=== PATIENT | female | born 1995 | race Caucasian/White ===

== ENCOUNTER 2017-01-22 19:38 | Outpatient (CLI) | payer SELFPAY ==
[~2017-01-22] VITALS: Ht 170.2 cm; Wt 70.3 kg
[~2017-01-22 19:38] MED LIST: PRENATAL TABLE1 EAC3 PO; ZOFRAN ODT8 MG PO
[2017-01-22 20:10] VITALS: BP 93/58
== END 2017-01-22 20:50 | disposition home or self-care (01) ==
LOC: LDRP-OP 19:38 → 2WEST 19:41
DX: O36.8130 Decreased fetal movements, third trimester, not applicable or unspecified (principal); Z3A.33 33 weeks gestation of pregnancy; Z87.891 Personal history of nicotine dependence
CPT/HCPCS: 59025; G0378

== ENCOUNTER 2017-03-09 14:08 | Inpatient (IN) | payer OTHER ==
[~2017-03-09] VITALS: Ht 170.2 cm; Wt 63.2 kg
[2017-03-09] VITALS (7 sets, daily range): BP systolic 110–117; BP diastolic 55–64
[2017-03-09] MEDS ORDERED: MACROBID100 MG PO (14:51)
[2017-03-09 16:24] LABS: ADD MIUA? YES; BILIRUBIN NEGATIVE; BLOOD MODERATE; COLOR YELLOW ((YELLOW)); GLUCOSE (STRIP) NEGATIVE; KETONES NEGATIVE; LEUKOCYTES NEGATIVE; NITRITE NEGATIVE; PROTEIN (STRIP) NEGATIVE; UROBILINOGEN 0.2 MG/DL (0.2-1.0)
[2017-03-09 16:28] LABS: BACTERIA RARE /HPF; EPITHELIAL CELLS RARE /HPF; MUCUS 1+ /LPF; RED BLOOD CELLS 0-5 /HPF (0-5); UCUL ADDED? NO; WHITE BLOOD CELLS 0-5 /HPF (0-5)
[2017-03-09 16:48] LABS: AMPHETAMINES QUANT VALUE 0 NG/ML; BARBITUATES QUANT VALUE 0 NG/ML; BENZODIAZEPINES QUANT VALUE 0 NG/ML; BENZODIAZEPINES, URINE SCREEN Negative (200 ng/mL); MARIJUANA QUANT VALUE 0 NG/ML; OPIATES QUANTITATIVE VALUE 0 NG/ML; PHENCYCLIDINE QUANT VALUE 0 NG/ML
[2017-03-09 17:23] LABS: BASOPHIL COUNT 0.1 K/uL (0-0.1); EOSINOPHIL (%) 1.2 % (0-5); EOSINOPHIL COUNT 0.2 K/uL (0-0.3); HEMATOCRIT 29.7 % (36.0-46.0); IMMATURE GRANULOCYTE (%) 3.8 % (0.0-0.7); IMMATURE GRANULOCYTE COUNT 0.5 K/uL; INSTRUMENT ABS NEUTROPHIL CT 9.9 K/uL; LYMPHOCYTE COUNT 2.2 K/uL (1.0-2.8); MCH 25.2 PG (29.0-34.0); MCHC 31.6 G/DL (30.0-36.0); MCV 79.6 FL (83-99); MEAN PLAT.VOLUME 9.4 uM^3 (9.5-12.4); MONOCYTE (%) 6.8 % (3-12); MONOCYTE COUNT 0.9 K/uL (0-0.8); NEUTROPHIL (%) 71.7 % (45-76); NEUTROPHIL COUNT 9.9 K/uL (1.8-6.4); PLATELET COUNT 298 K/uL (156-360); RBC DIS.WIDTH-CV 15.8 % (11.8-14.6); RBC DIS.WIDTH-SD 44.9 % (39-53); RED BLOOD COUNT 3.73 M/uL (3.80-5.20); WHITE BLOOD COUNT 13.9 K/uL (4.1-10.2)
[2017-03-10] VITALS (29 sets, daily range): BP systolic 85–116; BP diastolic 46–70
[2017-03-11 07:02] LABS: EOSINOPHIL (%) 1.4 % (0-5); EOSINOPHIL COUNT 0.2 K/uL (0-0.3); HEMATOCRIT 26.8 % (36.0-46.0); IMMATURE GRANULOCYTE (%) 1.5 % (0.0-0.7); IMMATURE GRANULOCYTE COUNT 0.2 K/uL; INSTRUMENT ABS NEUTROPHIL CT 10.5 K/uL; LYMPHOCYTE COUNT 2.4 K/uL (1.0-2.8); MCH 25.5 PG (29.0-34.0); MCHC 32.1 G/DL (30.0-36.0); MCV 79.5 FL (83-99); MEAN PLAT.VOLUME 9.8 uM^3 (9.5-12.4); MONOCYTE (%) 7.9 % (3-12); MONOCYTE COUNT 1.1 K/uL (0-0.8); NEUTROPHIL (%) 72.6 % (45-76); NEUTROPHIL COUNT 10.5 K/uL (1.8-6.4); PLATELET COUNT 261 K/uL (156-360); RBC DIS.WIDTH-CV 15.9 % (11.8-14.6); RBC DIS.WIDTH-SD 45.4 % (39-53); RED BLOOD COUNT 3.37 M/uL (3.80-5.20); WHITE BLOOD COUNT 14.4 K/uL (4.1-10.2)
[2017-03-11 07:57] VITALS: BP 96/60
[2017-03-11 14:39] VITALS: BP 96/52
[2017-03-11 23:53] VITALS: BP 111/62
[2017-03-12 07:20] VITALS: BP 93/54
[2017-03-12] MEDS ORDERED: VITRON-C TABLE1 EACH PO (11:59)
[2017-03-12 14:44] VITALS: BP 94/52
== END 2017-03-12 16:50 | disposition home or self-care (01) | DRG 775 ==
LOC: LDRP-OP 14:08 → 2WEST 14:09 → LDRP-OP 04-10 21:26
PROVIDERS: Advanced Practice Midwife
PROC: 10E0XZZ Delivery of Products of Conception, External Approach (ICD-10-PCS; principal; 2017-03-10)
PROC: 0KQM0ZZ Repair Perineum Muscle, Open Approach (ICD-10-PCS; principal; 2017-03-10)
PROC: 10907ZC Drainage of Amniotic Fluid, Therapeutic from Products of Conception, Via Natural or Artificial Opening (ICD-10-PCS; 2017-03-10)
PROC: 3E0S3BZ Introduction of Anesthetic Agent into Epidural Space, Percutaneous Approach (ICD-10-PCS; 2017-03-10)
DX: O48.0 Post-term pregnancy (principal); D62 Acute posthemorrhagic anemia; F33.9 Major depressive disorder, recurrent, unspecified; D50.9 Iron deficiency anemia, unspecified; F41.9 Anxiety disorder, unspecified; Z3A.41 41 weeks gestation of pregnancy; Z37.0 Single live birth; O99.02 Anemia complicating childbirth; O69.1XX0 Labor and delivery complicated by cord around neck, with compression, not applicable or unspecified; O70.1 Second degree perineal laceration during delivery; O99.344 Other mental disorders complicating childbirth; O99.824 Streptococcus B carrier state complicating childbirth
CPT/HCPCS: 80306 90; 81003; 85025; C1755; G0378; J2540; J3010; J7120